=== PATIENT | male | born 2000 | race Caucasian/White ===

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

== ENCOUNTER 2021-06-08 08:20 | Emergency (ER) | payer SELFPAY ==
[~2021-06-08 08:20] MED LIST: KEFLEX750 MG PO; PERCOCET 5/325 T1 EA PO
[2021-06-08] MEDS ORDERED: BACITRAYCIN PLU28 GM TP (10:35)
== END 2021-06-08 10:47 | disposition home or self-care (01) ==
LOC: ER1 08:20
DX: S01.81XA Laceration without foreign body of other part of head, initial encounter (principal); W22.8XXA Striking against or struck by other objects, initial encounter; Y93.9 Activity, unspecified; Y99.0 Civilian activity done for income or pay
CPT/HCPCS: 12011; 99282